=== PATIENT | male | born 1940 | race African-American/Black ===

== ENCOUNTER 2016-10-06 20:17 | Emergency (ER) | payer OTHER ==
[~2016-10-06] VITALS: Ht 172.7 cm; Wt 80.9 kg
[2016-10-06] MEDS ORDERED: KEFLEX500 MG PO (20:53)
[2016-10-06 21:19] VITALS: BP 134/62
== END 2016-10-06 21:21 ==
LOC: EME → EDBD 20:17 → EME 21:21
DX: L03.116 Cellulitis of left lower limb (principal); Z87.891 Personal history of nicotine dependence
CPT/HCPCS: 87070; 87075; 87077; 87147; 87186; 87205; 99281; 99284

== ENCOUNTER 2016-10-11 10:27 | Emergency (ER) | payer OTHER ==
[~2016-10-11] VITALS: Ht 172.7 cm; Wt 77.2 kg
[~2016-10-11 10:27] MED LIST: KEFLEX500 MG PO
[2016-10-11 13:00] VITALS: BP 148/70
== END 2016-10-11 13:00 ==
LOC: EME 10:27
PROC: 0H9LXZZ Drainage of Left Lower Leg Skin, External Approach (ICD-10-PCS; principal; 2016-10-11)
DX: L02.416 Cutaneous abscess of left lower limb (principal); I10 Essential (primary) hypertension; Z87.891 Personal history of nicotine dependence
CPT/HCPCS: 99281; 99284

== ENCOUNTER 2018-03-17 20:20 | Inpatient (IN) | payer OTHER ==
[~2018-03-17] VITALS: Ht 182.9 cm; Wt 79.5 kg
[2018-03-17 22:26] LABS: BASOPHIL (%) 0.4 % (0-1); EOSINOPHIL (%) 2.3 % (0-5); EOSINOPHIL COUNT 0.2 K/uL (0-0.3); HEMATOCRIT 33.5 % (38.0-50.0); IMMATURE GRANULOCYTE (%) 0.4 % (0.0-0.7); LYMPHOCYTE COUNT 1.4 K/uL (1.0-2.8); MCHC 32.8 G/DL (30.0-36.0); MCV 91.3 FL (86-99); MONOCYTE (%) 11.2 % (3-12); MONOCYTE COUNT 0.8 K/uL (0-0.8); NEUTROPHIL (%) 66.7 % (45-76); NEUTROPHIL COUNT 4.9 K/uL (1.8-6.4); RBC DIS.WIDTH-CV 13.8 % (11.8-14.6); RBC DIS.WIDTH-SD 46.5 % (39-53); RED BLOOD COUNT 3.67 M/uL (4.00-5.50); WHITE BLOOD COUNT 7.3 K/uL (4.1-10.2)
[2018-03-17 22:29] LABS: PLATELET COUNT 340 K/uL (156-360)
[2018-03-17 22:46] LABS: CHLORIDE 100 mEq/L (99-109); POTASSIUM 4.8 mEq/L (3.7-5.4); SODIUM 139 mEq/L (136-147)
[2018-03-17 22:47] LABS: MAGNESIUM 2.4 mg/dL (1.3-2.7); TROP-I INTERPRETATION POSITIVE
[2018-03-17 22:49] LABS: GLUCOSE 90 mg/dL (70-99); TOTAL PROTEIN 7.7 g/dL (6.4-8.3)
[2018-03-17 22:51] LABS: TOTAL BILIRUBIN 0.4 mg/dL (0.0-1.0)
[2018-03-17 22:52] LABS: ALKALINE PHOSPHATASE 90 IU/L (3-129); GFR ESTIMATE (CALCULATED) 7 mL/min/ (58.99-99999); PHOSPHORUS 5.2 mg/dL (2.5-4.9); TROPONIN-I 0.69 ng/mL (0.0-0.30)
[2018-03-17 22:54] LABS: AST (GOT) 21 IU/L (2-34); UREA NITROGEN (BUN) 43 mg/dL (9-23)
[2018-03-17 22:55] LABS: ALT (GPT) 15 IU/L (3-49)
[2018-03-17 23:22] LABS: INTER. NORMALIZED RATIO 1.3
[2018-03-17 23:25] LABS: PTT 27.9 SEC (25-37)
[2018-03-18 03:00] VITALS: BP 151/98
[2018-03-18 03:10] VITALS: BP 151/98
[2018-03-18 07:00] LABS: TROP-I INTERPRETATION POSITIVE; TROPONIN-I 0.61 ng/mL (0.0-0.30)
[2018-03-18 07:30] VITALS: BP 150/98
[2018-03-18] MEDS ORDERED: FOSRENOL1000 MG PO (11:16)
[2018-03-18] MEDS ORDERED: A AND D OINTM42.5 GM TP (11:16)
[2018-03-18] MEDS ORDERED: COZAAR25 MG PO (11:16)
[2018-03-18] MEDS ORDERED: CALCITRIOL0.25 MCG PO (11:20)
[2018-03-18 11:30] VITALS: BP 142/80
[2018-03-18 13:04] LABS: TROP-I INTERPRETATION POSITIVE; TROPONIN-I 0.68 ng/mL (0.0-0.30)
[2018-03-18 15:04] LABS: BASOPHIL (%) 0.5 % (0-1); EOSINOPHIL (%) 1.5 % (0-5); EOSINOPHIL COUNT 0.1 K/uL (0-0.3); HEMATOCRIT 30.6 % (38.0-50.0); HEMOGLOBIN 10.1 G/DL (12.5-16.6); LYMPHOCYTE (%) 17.8 % (15-42); LYMPHOCYTE COUNT 1.1 K/uL (1.0-2.8); MCH 29.9 PG (29.0-34.0); MCV 90.5 FL (86-99); MONOCYTE (%) 11.7 % (3-12); MONOCYTE COUNT 0.7 K/uL (0-0.8); NEUTROPHIL (%) 67.5 % (45-76); NEUTROPHIL COUNT 4.2 K/uL (1.8-6.4); PLATELET COUNT 394 K/uL (156-360); RBC DIS.WIDTH-CV 13.7 % (11.8-14.6); RBC DIS.WIDTH-SD 45.1 % (39-53); RED BLOOD COUNT 3.38 M/uL (4.00-5.50); WHITE BLOOD COUNT 6.1 K/uL (4.1-10.2)
[2018-03-18 15:13] LABS: ALBUMIN 2.8 G/DL (3.2-4.8); CHLORIDE 100 MEQ/L (99-109); POTASSIUM 4.2 MEQ/L (3.7-5.4); SODIUM 138 MEQ/L (136-147)
[2018-03-18 15:19] LABS: GFR ESTIMATE (CALCULATED) 7 mL/min/ (58.99-99999); GLUCOSE 83 mg/dL (70-99); UREA NITROGEN (BUN) 47 mg/dL (9-23)
[2018-03-18 19:15] VITALS: BP 153/92
[2018-03-18 23:29] VITALS: BP 152/73
[2018-03-19 03:30] VITALS: BP 122/58
[2018-03-19 06:28] LABS: HEMATOCRIT 31.8 % (38.0-50.0); HEMOGLOBIN 10.3 G/DL (12.5-16.6); MCH 29.4 PG (29.0-34.0); MCHC 32.4 G/DL (30.0-36.0); MCV 90.9 FL (86-99); PLATELET COUNT 340 K/uL (156-360); RBC DIS.WIDTH-CV 13.6 % (11.8-14.6); RBC DIS.WIDTH-SD 45.1 % (39-53); WHITE BLOOD COUNT 6.4 K/uL (4.1-10.2)
[2018-03-19 06:51] LABS: CHLORIDE 100 MEQ/L (99-109); GFR ESTIMATE (CALCULATED) 12 mL/min/ (58.99-99999); GLUCOSE 93 mg/dL (70-99); POTASSIUM 4.2 MEQ/L (3.7-5.4); SODIUM 139 MEQ/L (136-147); UREA NITROGEN (BUN) 27 mg/dL (9-23)
[2018-03-19 06:53] LABS: TROP-I INTERPRETATION INDETERMINATE; TROPONIN-I 0.59 ng/mL (0.0-0.30)
[2018-03-19 09:01] VITALS: BP 162/76
[2018-03-19] MEDS ORDERED: LOPRESSOR25 MG PO (13:16)
[2018-03-19] MEDS ORDERED: PRAVASTATIN SOD80 MG PO (13:16)
[2018-03-19] MEDS ORDERED: MILK OF MAGN PO (13:16)
[2018-03-19] MEDS ORDERED: CLOPIDOGREL75 MG PO (13:16)
[2018-03-19 13:42] VITALS: BP 162/78
[2018-03-19 14:13] LABS: HEPATITIS B SURFACE ANTIGEN Nonreactive
[2018-03-19 14:39] LABS: HEPATITIS B SURFACE ANTIBODY REACTIVE
== END 2018-03-19 15:33 | DRG 312 ==
LOC: EME 20:20 → EDOF 03-18 01:30 → 4EAST 03-18 01:30 → ENRESERV 03-18 01:32 → 4EAST 03-18 02:54
PROVIDERS: Emergency Medicine; Hospitalist; Internal Medicine Cardiovascular Disease; Internal Medicine Nephrology
DX: I95.1 Orthostatic hypotension (principal); R78.89 Finding of other specified substances, not normally found in blood; I27.20 Pulmonary hypertension, unspecified; K59.00 Constipation, unspecified; K80.20 Calculus of gallbladder without cholecystitis without obstruction; K80.50 Calculus of bile duct without cholangitis or cholecystitis without obstruction; I12.0 Hypertensive chronic kidney disease with stage 5 chronic kidney disease or end stage renal disease; R63.4 Abnormal weight loss; K40.20 Bilateral inguinal hernia, without obstruction or gangrene, not specified as recurrent; R16.0 Hepatomegaly, not elsewhere classified; N18.6 End stage renal disease; I71.2 Thoracic aortic aneurysm, without rupture; K80.70 Calculus of gallbladder and bile duct without cholecystitis without obstruction; K57.30 Diverticulosis of large intestine without perforation or abscess without bleeding; R93.2 Abnormal findings on diagnostic imaging of liver and biliary tract; Z87.891 Personal history of nicotine dependence; Z88.6 Allergy status to analgesic agent; Z99.2 Dependence on renal dialysis; Z86.73 Personal history of transient ischemic attack (TIA), and cerebral infarction without residual deficits
CPT/HCPCS: 70140; 71046; 71250; 74019; 74177; 80048; 80053; 80069; 81003; 83735; 84100; 84484; 85025; 85027; 85610; 85730; 86706; 87340; 93005; 93306; 93880; 99281; 99285; J1644; J7040

== ENCOUNTER 2018-03-20 21:33 | Observation (INO) | payer OTHER ==
[~2018-03-20] VITALS: Ht 175.3 cm; Wt 77.1 kg
[~2018-03-20 21:33] MED LIST changes: +A AND D OINTM42.5 GM TP; +CALCITRIOL0.25 MCG PO; +CLOPIDOGREL75 MG PO; +COZAAR25 MG PO; +FOSRENOL1000 MG PO; +LOPRESSOR25 MG PO; +MILK OF MAGN PO; +PRAVASTATIN SOD80 MG PO
[2018-03-20 22:31] LABS: HEMATOCRIT 33.3 % (38.0-50.0); HEMOGLOBIN 11.1 G/DL (12.5-16.6); MCH 29.8 PG (29.0-34.0); MCHC 33.3 G/DL (30.0-36.0); MCV 89.3 FL (86-99); PLATELET COUNT 334 K/uL (156-360); RBC DIS.WIDTH-CV 13.4 % (11.8-14.6); RBC DIS.WIDTH-SD 43.9 % (39-53); RED BLOOD COUNT 3.73 M/uL (4.00-5.50); WHITE BLOOD COUNT 5.9 K/uL (4.1-10.2)
[2018-03-20 22:48] LABS: ALBUMIN 3.3 g/dL (3.2-4.8); CHLORIDE 97 mEq/L (99-109); POTASSIUM 3.6 mEq/L (3.7-5.4); SODIUM 138 mEq/L (136-147)
[2018-03-20 22:51] LABS: TOTAL PROTEIN 8.3 g/dL (6.4-8.3)
[2018-03-20 22:53] LABS: INTER. NORMALIZED RATIO 1.3
[2018-03-20 22:54] LABS: CREATININE 5.9 mg/dL (0.6-1.3); GFR ESTIMATE (CALCULATED) 12 mL/min/ (58.99-99999)
[2018-03-20 22:55] LABS: PTT 31.4 SEC (25-37); UREA NITROGEN (BUN) 21 mg/dL (9-23)
[2018-03-20 22:56] LABS: AST (GOT) 24 IU/L (2-34)
[2018-03-20 22:57] LABS: ALT (GPT) 19 IU/L (3-49)
[2018-03-20 23:00] LABS: TROP-I INTERPRETATION INDETERMINATE; TROPONIN-I 0.45 ng/mL (0.0-0.30)
[2018-03-20 23:10] LABS: ALKALINE PHOSPHATASE 148 IU/L (3-129); GLUCOSE 117 mg/dL (70-99); TOTAL BILIRUBIN 0.5 mg/dL (0.0-1.0)
[2018-03-21 02:27] VITALS: BP 186/88
[2018-03-21 04:54] VITALS: BP 141/76
[2018-03-21 08:52] LABS: BASOPHIL (%) 0.5 % (0-1); EOSINOPHIL (%) 1.9 % (0-5); EOSINOPHIL COUNT 0.1 K/uL (0-0.3); HEMATOCRIT 30.4 % (38.0-50.0); HEMOGLOBIN 10.1 G/DL (12.5-16.6); IMMATURE GRANULOCYTE (%) 0.3 % (0.0-0.7); LYMPHOCYTE (%) 16.6 % (15-42); MCH 29.8 PG (29.0-34.0); MCHC 33.2 G/DL (30.0-36.0); MCV 89.7 FL (86-99); MONOCYTE (%) 13.6 % (3-12); MONOCYTE COUNT 0.8 K/uL (0-0.8); NEUTROPHIL (%) 67.1 % (45-76); NEUTROPHIL COUNT 3.9 K/uL (1.8-6.4); PLATELET COUNT 296 K/uL (156-360); RBC DIS.WIDTH-CV 13.2 % (11.8-14.6); RBC DIS.WIDTH-SD 43.4 % (39-53); RED BLOOD COUNT 3.39 M/uL (4.00-5.50); WHITE BLOOD COUNT 5.8 K/uL (4.1-10.2)
[2018-03-21 09:20] LABS: CHLORIDE 98 MEQ/L (99-109); CREATININE 6.4 MG/DL (0.6-1.3); GFR ESTIMATE (CALCULATED) 11 mL/min/ (58.99-99999); GLUCOSE 95 mg/dL (70-99); SODIUM 138 MEQ/L (136-147); UREA NITROGEN (BUN) 25 mg/dL (9-23)
[2018-03-21 09:21] LABS: TROP-I INTERPRETATION INDETERMINATE
[2018-03-21 10:07] VITALS: BP 188/88
[2018-03-21 11:08] VITALS: BP 179/84
== END 2018-03-21 12:32 ==
LOC: EME → EDBD 21:33 → EME 21:33 → EDOF 03-21 01:06 → ENRESERV 03-21 01:09 → 4SOUTH 03-21 02:11
PROVIDERS: Emergency Medicine; Internal Medicine
DX: R55 Syncope and collapse (principal); I12.0 Hypertensive chronic kidney disease with stage 5 chronic kidney disease or end stage renal disease; N18.6 End stage renal disease; Z99.2 Dependence on renal dialysis; Z86.73 Personal history of transient ischemic attack (TIA), and cerebral infarction without residual deficits; R16.0 Hepatomegaly, not elsewhere classified; R79.89 Other specified abnormal findings of blood chemistry; Z88.6 Allergy status to analgesic agent; Z87.891 Personal history of nicotine dependence
CPT/HCPCS: 70450; 71045; 80048; 80053; 81003; 84484; 85025; 85027; 85610; 85730; 93005; 99281; 99285; G0378; J1644